=== PATIENT | female | born 2000 | race Caucasian/White ===

== ENCOUNTER → 2018-05-01 | Outpatient (CLI) | payer BC, OTHER ==
[~2018-05-01] MED LIST: ALBU4 PO; ALBU90OI INH; ALBU90OI61 INH; Cyclobenzaprine5 MG PO; FLUT44OIA INH; Norco 5-325 Ta1 EACH PO; Prednisone20 MG PO
== END | disposition home or self-care (01) ==
LOC: LAB SHORT 17:19 → LAB 17:19
DX: Z34.03 Encounter for supervision of normal first pregnancy, third trimester (principal); Z3A.35 35 weeks gestation of pregnancy
CPT/HCPCS: 87081; 87653

== ENCOUNTER 2020-11-07 09:26 | Observation (INO) | payer BC ==
[~2020-11-07] VITALS: Ht 160 cm; Wt 56.7 kg
[2020-11-07 11:31] LABS: BASOPHILS ABSOLUTE AUTO 0.15 K/mm3 (0.00-0.23); BASOPHILS PERCENT AUTO 1 % (0-2); EOSINOPHILS ABSOLUTE AUTO 5.97 K/mm3 (0.00-0.68); EOSINOPHILS PERCENT AUTO 43 % (0-6); Hematocrit 47.6 % (33.0-51.0); Hemoglobin 16.3 g/dL (11.5-16.0); IMMATURE GRAN ABSOLUTE AUTO 0.05 K/mm3 (0.00-0.10); IMMATURE GRAN PERCENT AUTO 0 % (0-1); LYMPHOCYTES ABSOLUTE AUTO 2.49 K/mm3 (0.84-5.20); LYMPHOCYTES PERCENT AUTO 18 % (21-46); MONOCYTES ABSOLUTE AUTO 0.66 K/mm3 (0.16-1.47); MONOCYTES PERCENT AUTO 5 % (4-13); Mean Corpuscular HGB 31.7 pg (26.0-34.0); Mean Corpuscular HGB Conc 34.2 g/dL (31.5-36.5); Mean Corpuscular Volume 93 fL (80-100); Mean Platelet Volume 9.8 fL (9.1-12.4); NEUTROPHILS ABSOLUTE AUTO 4.74 K/mm3 (1.96-9.15); NEUTROPHILS PERCENT AUTO 34 % (41-73); Platelet Count 228 K/mm3 (150-400); RDW Coefficient Variation 12.4 % (11.7-14.2); RDW Standard Deviation 42.5 fL (35.1-46.3); Red Blood Cell Count 5.14 M/mm3 (3.80-5.20); White Blood Cell Count 14.06 K/mm3 (4.00-11.30)
[2020-11-07 11:51] LABS: Alanine Aminotransfer (ALT/SGP 21 U/L (12-78); Albumin, Blood 3.7 g/dL (3.4-5.0); Albumin/Globulin Ratio 1.1 (0.8-1.8); Alk Phos 96 U/L (50-136); Anion Gap 9 mmol/L (6-16); Aspartate Aminotrans (AST/SGOT 17 U/L (12-37); Blood Urea Nitrogen 11 mg/dL (8-24); Bun/Creatinine Ratio 17.1 (12.0-20.0); CO2, Blood 20 mmol/L (21-32); Calcium, Blood 8.6 mg/dL (8.5-10.1); Chloride, Blood 113 mmol/L (98-108); Creatinine, Blood 0.64 mg/dL (0.40-1.00); Globulin, Blood 3.5 g/dL (2.2-4.0); Glomerular Filtration Rate >60 (60-); Glucose, Blood 77 mg/dL (70-99); Potassium, Blood 3.9 mmol/L (3.5-5.5); Sodium, Blood 142 mmol/L (136-145); Total Protein, Blood 7.2 g/dL (6.4-8.2)
[2020-11-07] MEDS ORDERED: ESCI10 PO (13:14)
[2020-11-07] MEDS ORDERED: MONT10T PO (13:14)
[2020-11-07] MEDS ORDERED: WIXELA 250-501 EAC1 INH (13:15)
[2020-11-07] MEDS ORDERED: FLUT1DIS8 INH (16:20)
[2020-11-07 18:06] LABS: Source, Urine Clean Catch
[2020-11-07 18:09] LABS: Bilirubin, Urine Neg (Neg); Blood, Urine 1+ (Neg); Color, Urine Yellow (P-Yellow); Glucose Qualitative, Urine Neg (Neg); Ketones, Urine Neg (Neg); Leukocyte Esterase, Urine 2+ (Neg); Nitrite, Urine Neg (Neg); Protein, Urine Neg (Neg); Urobilinogen, Urine NORM (Normal)
[2020-11-07 18:17] LABS: Appearance, Urine Hazy (Clear)
[2020-11-07 18:19] LABS: Bacteria Many /hpf; Red Blood Cells, Urine 0-2 /hpf (0-2); Squamous Epithelial Cells Many /hpf (Few)
--- NOTE | 2020-11-07 18:35 | NUR ---
SHIFT SUMMARY/ARRIVED ON MEDICAL FLOOR FOR ADMISSION PT AxOx4. ARRIVED TO MEDICAL FLOOR FROM ER AT APPROX 1612. PT PLEASANT AND COOPERATIVE WITH CARE. INDEPENDENT IN THE ROOM. RT IN ROOM FOR BREATHING TX SHORTLY AFTER ARRIVAL. PT CURRENTLY ON 2L O2 WITH SAT'S AT 95%. PT REPORTS MODERATE R CHEST WALL/RIB PAIN WITH MOVEMENT OR WITH APPLIED PRESSURE. PT REPORTS NO PAIN WHEN SHE IS LYING STILL. PT HAS DIFFICULTY TAKING DEEP BREATHS FOR RESP ASSESS D/T RCW PAIN. PT ACCEPTED HEAT PAD FOR RELIEF. GIVEN FLU SHOT. STEP MOM IN ROOM AND GIVEN UPDATE ON PLAN. PT IS CURRENTLY UNDER OBSERVATION. ADMISSION COMPLETE. PT SHOWS NO SIGNS OF DISTRESS. UA COLLECTED. CURRENTLY RESTING IN ROOM EATING DINNER. VITALS REVIEWED. DENIES ANY NEEDS AT THIS TIME.
--- NOTE | 2020-11-08 04:19 | NUR ---
MEAL GRINDER TENDER SUMMARY PT A&OX4, ABLE TO MAKE NEEDS KNOWN. PLEASANT AND COOPERATIVE TO CARE. PT MEDICATED FOR R RIB AREA PAIN PER EMAR. PT CONT ON O2 2LPM VIA NC. SAT >90%. LSCTA. NO C/O CP, SOB, OR N&V. PT INDEPENDENT IN ROOM. DENIES DYSURIA OR ANY OTHER DISCOMFORT. PT CALM AND RESTED IN BED AT THIS TIME. CALL LIGHT WITHIN REACH.
[2020-11-08 05:19] LABS: Hematocrit 47.1 % (33.0-51.0); Hemoglobin 15.7 g/dL (11.5-16.0); Mean Corpuscular HGB Conc 33.3 g/dL (31.5-36.5); Mean Corpuscular Volume 93 fL (80-100); Mean Platelet Volume 10.1 fL (9.1-12.4); Platelet Count 238 K/mm3 (150-400); RDW Coefficient Variation 12.2 % (11.7-14.2); RDW Standard Deviation 41.9 fL (35.1-46.3); Red Blood Cell Count 5.07 M/mm3 (3.80-5.20); White Blood Cell Count 9.39 K/mm3 (4.00-11.30)
[2020-11-08 05:32] LABS: Anion Gap 9 mmol/L (6-16); Blood Urea Nitrogen 11 mg/dL (8-24); Bun/Creatinine Ratio 19.6 (12.0-20.0); CO2, Blood 20 mmol/L (21-32); Calcium, Blood 9.7 mg/dL (8.5-10.1); Chloride, Blood 110 mmol/L (98-108); Creatinine, Blood 0.56 mg/dL (0.40-1.00); Glomerular Filtration Rate >60 (60-); Glucose, Blood 128 mg/dL (70-99); Potassium, Blood 4.3 mmol/L (3.5-5.5); Sodium, Blood 139 mmol/L (136-145)
--- NOTE | 2020-11-08 16:28 | NUR ---
SHIFT SUMMARY PT AOX4; CALLS APPROPRIATELY. PT INDEPENDENT IN THE ROOM. ON TELE AT NSR. PT BOYFRIEND AT BEDSIDE. PT IS 95-96% ON RA. NO O2 AT THIS TIME, AND DENIES SOB. MEDICATED FOR R RIB PAIN THIS AM, AND COUGH MEDICINE GIVEN THIS AFTERNOON. PT STATED THAT IT HELPED HER FROM COUGHING AND PAIN. HOME O2 EVAL TODAY. BED IS IN THE LOWES POSITION AND CALL LIGHT WITHIN REACH
[2020-11-08] MEDS ORDERED: IBUP400 PO (17:32)
[2020-11-08] MEDS ORDERED: PRED20 PO (17:32)
--- NOTE | 2020-11-08 18:00 | NUR ---
PT DISCHARGED TO HOME, WALKED WITH BOYFRIEND. PT RECEIVED BREATHING TX PRIOR DISCHARGE AND HOME O2 EVAL; WHICH SHE DID NOT REQUIRE O2. IV DC'D. MEDICATIONS WAS FAXED TO PHARMACY. PT EDUCATED ABOUT NEW MEDICATIONS. IV DC'D. PT STATED SHE HAS APPOINTMENT WITH HER PROVIDER ON Nov. DENIES SOB OR PAIN DURING DISCHARGE.
== END 2020-11-08 17:50 | disposition home or self-care (01) ==
LOC: ER 09:26 → ERHOLD 09:27 → MEDS 16:11
PROVIDERS: Nurse Practitioner Acute Care; Physician Assistant; ADMIT Family Medicine
DX: J45.901 Unspecified asthma with (acute) exacerbation (principal); J96.01 Acute respiratory failure with hypoxia; M94.0 Chondrocostal junction syndrome [Tietze]; R65.11 Systemic inflammatory response syndrome (SIRS) of non-infectious origin with acute organ dysfunction; Z79.51 Long term (current) use of inhaled steroids; Z91.09 Other allergy status, other than to drugs and biological substances; Z23 Encounter for immunization
CPT/HCPCS: 36415; 71045; 80048; 80053; 81001; 85025; 85027; 87086; 94640; 94760; 94761; 96374; 96375; 96376; 99285-25; A9270; G0008; G0378; J1885; J2920; J2930; J7120; J7512; Q2038

== ENCOUNTER → 2023-05-29 | Outpatient (CLI) | payer BC ==
[~2023-05-29] MED LIST changes: +ESCI10 PO; +FLUT1DIS8 INH; +IBUP400 PO; +MONT10T PO; +PRED20 PO; +WIXELA 250-501 EAC1 INH
== END | disposition home or self-care (01) ==
LOC: LAB SHORT 08:16 → LAB 08:16
DX: N39.0 Urinary tract infection, site not specified (principal)
CPT/HCPCS: 87086

== ENCOUNTER → 2023-06-02 | Outpatient (CLI) | payer BC ==
[~2023-06-02] MED LIST changes: -ALBU90OI61 INH; +AMOCLA875 PO; +AZIT250 PO; +CRYSELLE-28 TA1 EACH PO; +FLUT1DIS5 INH; +SERT25 PO
[2023-06-02 08:36] LABS: BASOPHILS PERCENT AUTO 1 % (0-2); EOSINOPHILS ABSOLUTE AUTO 0.12 K/mm3 (0.00-0.68); EOSINOPHILS PERCENT AUTO 1 % (0-6); Hematocrit 39.9 % (33.0-51.0); Hemoglobin 13.8 g/dL (11.5-16.0); IMMATURE GRAN ABSOLUTE AUTO 0.13 K/mm3 (0.00-0.10); IMMATURE GRAN PERCENT AUTO 1 % (0-1); LYMPHOCYTES ABSOLUTE AUTO 1.87 K/mm3 (0.84-5.20); LYMPHOCYTES PERCENT AUTO 9 % (21-46); MONOCYTES ABSOLUTE AUTO 1.44 K/mm3 (0.16-1.47); MONOCYTES PERCENT AUTO 7 % (4-13); Mean Corpuscular HGB Conc 34.6 g/dL (31.5-36.5); Mean Corpuscular Volume 87 fL (80-100); NEUTROPHILS ABSOLUTE AUTO 17.59 K/mm3 (1.96-9.15); NEUTROPHILS PERCENT AUTO 83 % (41-73); Platelet Count 458 K/mm3 (150-400); RDW Coefficient Variation 11.9 % (11.7-14.2); RDW Standard Deviation 37.9 fL (35.1-46.3); White Blood Cell Count 21.25 K/mm3 (4.00-11.30)
[2023-06-02 09:34] LABS: Albumin, Blood 3.7 g/dL (3.4-5.0); Albumin/Globulin Ratio 0.8 (0.8-1.8); Bilirubin, Total 0.7 mg/dL (0.1-1.0); Bun/Creatinine Ratio 5.7 (12.0-20.0); Calcium, Blood 9.7 mg/dL (8.5-10.1); Creatinine, Blood 0.88 mg/dL (0.40-1.00); Globulin, Blood 4.9 g/dL (2.2-4.0); Potassium, Blood 3.5 mmol/L (3.5-5.5); Total Protein, Blood 8.6 g/dL (6.4-8.2)
== END | disposition home or self-care (01) ==
LOC: LAB SHORT 08:31 → LAB 08:31
PROVIDERS: Physician Assistant
DX: J18.1 Lobar pneumonia, unspecified organism (principal)
CPT/HCPCS: 80053; 85025

== ENCOUNTER 2023-06-05 11:47 | Inpatient (IN) | payer BC ==
[~2023-06-05] VITALS: Ht 162.6 cm; Wt 79.7 kg
[~2023-06-05 11:47] MED LIST changes: -ACET325 PO; -AMOCLA875 PO; -AZIT250 PO; -CRYSELLE-28 TA1 EACH PO; -FLUT1DIS5 INH; -LACT PO; -SERT25 PO
[2023-06-05] MEDS ORDERED: SERT25 PO (14:51)
[2023-06-05] MEDS ORDERED: WIXELA 250-501 EAC1 INH (14:51)
[2023-06-05] MEDS ORDERED: CRYSELLE-28 TA1 EACH PO (14:51)
[2023-06-05] MEDS ORDERED: AZIT250 PO (14:56)
[2023-06-05] MEDS ORDERED: AMOCLA875 PO (14:57)
[2023-06-05 15:34] VITALS: BP 97/65
[2023-06-05] MEDS ORDERED: FLUT1DIS5 INH (15:39)
[2023-06-05 17:01] VITALS: BP 106/77
--- NOTE | 2023-06-05 17:38 | NUR ---
PATIENT CALLED THE RN TO THE ROOM AT 1700 TO ALERT STAFF TO HER SWOLLEN RIGHT EYE, SWOLLEN UPPER LIP AND REDNESS ACROSS HER FACE AND NECK. PATIENT C/O ITCHING ALSO. THE VANCOMYCIN INFUSION WAS COMPLETED AT THAT TIME. VITALS STABLE. NO C/O TROUBLE BREATHING, O2 SAT WAS 100% ON RA. ECG TECHNICIAN, LAINE NOTIFIED AND ALSO ASSESSED THE PATIENT. DR. JORDAN NOTIFIED AND ORDERS GIVEN. THE PATIENT'S IV IS PAINFUL FROM THE VANCOMYCIN. LOOKING FOR A NEW IV NOW SO WE CAN ADMINISTER THE MEDICATIONS ORDERED BY DR. JORDAN.
[2023-06-05 18:39] VITALS: BP 98/65
--- NOTE | 2023-06-05 18:49 | NUR ---
PATIENT IS ALERT AND ORIENTED AND COOPERATIVE WITH CARE. FOLLOWING THE ADMINISTRATION OF MEDS FOR HER ALLERGIC REACTION TO VANCO, THE PATIENT C/O NAUSEA. MEDICATED WITH ZOSYN PER EMAR. PATIENT'S MOM AND BOYFRIEND ARE AT THE BEDSIDE AT THIS TIME. PATIENT STATES SHE IS TIRED AND THE ZOSYN HAS HELPED A LITTLE. VSS. WILL CONTINUE TO MONITOR
[2023-06-05 19:41] VITALS: BP 98/61
[2023-06-06 04:28] VITALS: BP 96/60
--- NOTE | 2023-06-06 04:49 | NUR ---
SHIFT SUMMARY 23 YR F ADMITTED FOR NECROTIZING PNA. FULL CODE. ASSUMED CARE OF PT AT APPROX 0330. NO ACUTE CHANGES. PT STATED SHE FELT WARM AND CLAMMY BUT TEMP WAS 97.3. PT WAS GIVEN A FAN AND STATED THAT IT HELPED ALOT. SHE HAS NO C/O PAIN OR DISCOMFORT AT THIS TIME. SHE IS PLEASANT AND COOPERATIVE WITH CARE AND IS INDEPENDANT IN THE ROOM.
[2023-06-06 05:12] LABS: BASOPHILS ABSOLUTE AUTO 0.03 K/mm3 (0.00-0.23); BASOPHILS PERCENT AUTO 0 % (0-2); EOSINOPHILS ABSOLUTE AUTO 0.01 K/mm3 (0.00-0.68); EOSINOPHILS PERCENT AUTO 0 % (0-6); Hematocrit 35.1 % (33.0-51.0); Hemoglobin 11.8 g/dL (11.5-16.0); IMMATURE GRAN ABSOLUTE AUTO 0.09 K/mm3 (0.00-0.10); IMMATURE GRAN PERCENT AUTO 1 % (0-1); LYMPHOCYTES ABSOLUTE AUTO 0.99 K/mm3 (0.84-5.20); LYMPHOCYTES PERCENT AUTO 7 % (21-46); MONOCYTES ABSOLUTE AUTO 0.16 K/mm3 (0.16-1.47); MONOCYTES PERCENT AUTO 1 % (4-13); Mean Corpuscular HGB 29.6 pg (26.0-34.0); Mean Corpuscular HGB Conc 33.6 g/dL (31.5-36.5); Mean Corpuscular Volume 88 fL (80-100); Mean Platelet Volume 9.1 fL (9.1-12.4); NEUTROPHILS ABSOLUTE AUTO 13.33 K/mm3 (1.96-9.15); NEUTROPHILS PERCENT AUTO 91 % (41-73); Platelet Count 501 K/mm3 (150-400); RDW Coefficient Variation 11.6 % (11.7-14.2); RDW Standard Deviation 37.2 fL (35.1-46.3); Red Blood Cell Count 3.98 M/mm3 (3.80-5.20); White Blood Cell Count 14.61 K/mm3 (4.00-11.30)
[2023-06-06 05:51] LABS: Albumin, Blood 2.4 g/dL (3.4-5.0); Albumin/Globulin Ratio 0.6 (0.8-1.8); Bilirubin, Total 0.5 mg/dL (0.1-1.0); Calcium, Blood 8.3 mg/dL (8.5-10.1); Creatinine, Blood 0.67 mg/dL (0.40-1.00); Globulin, Blood 4.2 g/dL (2.2-4.0); Potassium, Blood 4.3 mmol/L (3.5-5.5); Total Protein, Blood 6.6 g/dL (6.4-8.2)
[2023-06-06 07:41] VITALS: BP 104/67
--- NOTE | 2023-06-06 11:09 | NUR ---
PT REFUSED STOOL SOFT. STATES NEARLY DIARRHEA. WILL SPEAK TO
[2023-06-06 15:32] VITALS: BP 105/66
--- NOTE | 2023-06-06 19:28 | NUR ---
ptpleasant today. noc/o pian until end of shift , tylenol admn. family in to see today. continue abx. did have slight redness in cheeks today. gave ice pack for comfort. cough is now dry/nonproductive. no other concerns noted. independant in room. bed in low position, call lite in reach,calls approp
[2023-06-06 20:33] VITALS: BP 108/70
[2023-06-07 02:40] VITALS: BP 114/72
[2023-06-07 05:01] LABS: BASOPHILS ABSOLUTE AUTO 0.05 K/mm3 (0.00-0.23); BASOPHILS PERCENT AUTO 0 % (0-2); EOSINOPHILS ABSOLUTE AUTO 0.01 K/mm3 (0.00-0.68); EOSINOPHILS PERCENT AUTO 0 % (0-6); Hematocrit 31.3 % (33.0-51.0); Hemoglobin 10.7 g/dL (11.5-16.0); IMMATURE GRAN ABSOLUTE AUTO 0.11 K/mm3 (0.00-0.10); IMMATURE GRAN PERCENT AUTO 1 % (0-1); LYMPHOCYTES PERCENT AUTO 14 % (21-46); MONOCYTES ABSOLUTE AUTO 1.05 K/mm3 (0.16-1.47); MONOCYTES PERCENT AUTO 6 % (4-13); Mean Corpuscular HGB 29.8 pg (26.0-34.0); Mean Corpuscular HGB Conc 34.2 g/dL (31.5-36.5); Mean Corpuscular Volume 87 fL (80-100); NEUTROPHILS ABSOLUTE AUTO 14.68 K/mm3 (1.96-9.15); NEUTROPHILS PERCENT AUTO 79 % (41-73); Platelet Count 503 K/mm3 (150-400); RDW Coefficient Variation 11.8 % (11.7-14.2); RDW Standard Deviation 37.8 fL (35.1-46.3); Red Blood Cell Count 3.59 M/mm3 (3.80-5.20)
[2023-06-07 05:17] LABS: Bun/Creatinine Ratio 10.8 (12.0-20.0); Calcium, Blood 8.3 mg/dL (8.5-10.1); Creatinine, Blood 0.74 mg/dL (0.40-1.00); Potassium, Blood 3.6 mmol/L (3.5-5.5)
--- NOTE | 2023-06-07 05:25 | NUR ---
SHIFT SUMMARY PATIENT ALERT, BRIGHT AFFECT. APPEARES ANXIOUS AT TIMES. FAMILY AND BOYFRIEND AT BEDSIDE AT BEGINING OF SHIFT. DENIES PAOIN NOR DISCOMFORT, OCCATIONAL DRY COUGH. LUNGS CTA, NO AUDIBLE CRACKLES/RALES. INDEPENDANT IN ROOM. TOOK SHOWER AT HS, TOLERATED WELL. CONTINUES ON IV ABX THERAPY WITHOUT ANY APPARENT ASE NOTED NOR REPORTED. NO ACUTE CHANGES NOTED OVERNIGHT. BED IN LOW POSITION, CALL LIGHT WITHIN REACH.
[2023-06-07 07:45] VITALS: BP 114/75
[2023-06-07 15:12] VITALS: BP 91/65
--- NOTE | 2023-06-07 15:59 | NUR ---
SHIFT SUMMARY PT AWAKE DURING SHIFT REPORT, IV ABX INFUSING. PT SL AND TAKEN DOWN FOR CXR VIA W/C. PT UP INDEPENDENTLY IN AND TO BTH[facility]. PT'S MOM IN TO VISIT EARLY TODAY. PT LATER C/O PAIN/TENDERNESS TO LFA IV SITE AND REQUESTING IV ABX RUN AT SLOWER RATE. NEW IV PLACED; IV ABX COMPLETED. PT LATER C/O PAIN TO R SIDE D/T COUGHING. PT MEDICATED PER EMAR AND REPORTED IT EFFECTIVE. RESTING QUIETLY WATCHING TV. DENIES FURTHER NEEDS AT THIS TIME. CALL LT IN REACH.
[2023-06-07 19:34] VITALS: BP 92/67
[2023-06-08 03:50] VITALS: BP 93/64
[2023-06-08 05:08] LABS: BASOPHILS ABSOLUTE AUTO 0.06 K/mm3 (0.00-0.23); BASOPHILS PERCENT AUTO 1 % (0-2); EOSINOPHILS ABSOLUTE AUTO 0.17 K/mm3 (0.00-0.68); EOSINOPHILS PERCENT AUTO 1 % (0-6); Hematocrit 31.1 % (33.0-51.0); Hemoglobin 10.5 g/dL (11.5-16.0); IMMATURE GRAN ABSOLUTE AUTO 0.06 K/mm3 (0.00-0.10); IMMATURE GRAN PERCENT AUTO 1 % (0-1); LYMPHOCYTES ABSOLUTE AUTO 2.87 K/mm3 (0.84-5.20); LYMPHOCYTES PERCENT AUTO 23 % (21-46); MONOCYTES ABSOLUTE AUTO 0.88 K/mm3 (0.16-1.47); MONOCYTES PERCENT AUTO 7 % (4-13); Mean Corpuscular HGB 29.3 pg (26.0-34.0); Mean Corpuscular HGB Conc 33.8 g/dL (31.5-36.5); Mean Corpuscular Volume 87 fL (80-100); Mean Platelet Volume 8.8 fL (9.1-12.4); NEUTROPHILS ABSOLUTE AUTO 8.24 K/mm3 (1.96-9.15); NEUTROPHILS PERCENT AUTO 67 % (41-73); Platelet Count 438 K/mm3 (150-400); RDW Coefficient Variation 11.9 % (11.7-14.2); RDW Standard Deviation 38.3 fL (35.1-46.3); Red Blood Cell Count 3.58 M/mm3 (3.80-5.20); White Blood Cell Count 12.28 K/mm3 (4.00-11.30)
[2023-06-08 05:36] LABS: Bun/Creatinine Ratio 8.9 (12.0-20.0); Calcium, Blood 8.1 mg/dL (8.5-10.1); Creatinine, Blood 0.78 mg/dL (0.40-1.00); Potassium, Blood 3.8 mmol/L (3.5-5.5)
--- NOTE | 2023-06-08 06:08 | NUR ---
PATIENT A/O X4, UP INDEPENDENTLY IN ROOM. VSS, SBP IN THE LOW 90'S, PATIENT NOT DIZZY OR SYMPTOMATIC WITH THIS. LUNGS CLEAR, ON RA. OCCASIONAL DRY COUGH THAT CAUSES R RIB DISCOMFORT, PATIENT DENIES NEED FOR INTERVENTION FOR THIS. SKIN INTACT. 22G TO R FA WNL. RECEIVING ANTIBIOTICS. ZOFRAN GIVEN X1 THIS SHIFT FOR NAUSEA WITH STATED RELIEF. NO NEW CONCERNS THIS SHIFT.
[2023-06-08 08:00] VITALS: BP 90/57
[2023-06-08] MEDS ORDERED: ACET325 PO (11:56)
[2023-06-08] MEDS ORDERED: LACT PO (11:56)
[2023-06-08] MEDS ORDERED: Norco 5-325 Ta1 EACH PO (11:56)
--- NOTE | 2023-06-08 14:28 | NUR ---
PT AWAKE AT START OF SHIFT. PLEASANT AND CO-OP WITH CARE. UP INDEPENDENTLY IN AND TO [facility]. PT'S MOM AND SON TO TO VISIT EARLY THIS AM. DR JORDAN LATER IN TO SEE PT AND DISCUSS PLAN OF CARE. PT TO D/C TO HOME. MEDS FAXED TO PHARMACY, PER PT REQUEST. HARD SCRIPT WRITTEN FOR PAIN/COUGH MEDICATION; COPY PLACED ON CHART. 1200 DOSE OF IV ZOSYN GIVEN EARLY PER DR JORDAN, PRIOR TO PT D/C. D/C INSTRUCTIONS REVIEWED WITH PT; VERBALIZED UNDERSTANDING. FAMILY ASSISTED PT WITH BELONGINGS. PT REQUESTED TO WALK OUT WITH FAMILY AT D/C. DENIED FURTHER NEEDS.
== END 2023-06-08 12:38 | disposition home or self-care (01) | DRG 871 ==
LOC: ER 11:47 → MEDS 13:29
PROVIDERS: ADMIT Internal Medicine
DX: A41.9 Sepsis, unspecified organism (principal); J85.1 Abscess of lung with pneumonia; F12.90 Cannabis use, unspecified, uncomplicated; J45.909 Unspecified asthma, uncomplicated; R65.20 Severe sepsis without septic shock; T38.0X5A Adverse effect of glucocorticoids and synthetic analogues, initial encounter; F41.9 Anxiety disorder, unspecified; Z79.52 Long term (current) use of systemic steroids; Z79.899 Other long term (current) drug therapy; Z91.048 Other nonmedicinal substance allergy status; Z88.1 Allergy status to other antibiotic agents
CPT/HCPCS: 36415; 71046; 80048; 80053; 83605; 85025; 87040; 87070; 87205; 94640; 94664; 94760; 96361; 96365; 96367; 99285-25; A9270; J0736; J1200; J2020; J2405; J2543; J2930; J3370; J7030; J7050

== ENCOUNTER → 2023-06-05 | Outpatient (CLI) | payer BC ==
[~2023-06-05] MED LIST changes: +ACET325 PO; +LACT PO
[2023-06-05 08:38] LABS: BASOPHILS PERCENT AUTO 1 % (0-2); EOSINOPHILS ABSOLUTE AUTO 0.07 K/mm3 (0.00-0.68); EOSINOPHILS PERCENT AUTO 0 % (0-6); Hematocrit 39.6 % (33.0-51.0); Hemoglobin 13.8 g/dL (11.5-16.0); IMMATURE GRAN ABSOLUTE AUTO 0.12 K/mm3 (0.00-0.10); IMMATURE GRAN PERCENT AUTO 1 % (0-1); LYMPHOCYTES ABSOLUTE AUTO 1.94 K/mm3 (0.84-5.20); LYMPHOCYTES PERCENT AUTO 10 % (21-46); MONOCYTES ABSOLUTE AUTO 1.07 K/mm3 (0.16-1.47); MONOCYTES PERCENT AUTO 5 % (4-13); Mean Corpuscular HGB 30.1 pg (26.0-34.0); Mean Corpuscular HGB Conc 34.8 g/dL (31.5-36.5); Mean Corpuscular Volume 86 fL (80-100); Mean Platelet Volume 8.7 fL (9.1-12.4); NEUTROPHILS ABSOLUTE AUTO 17.04 K/mm3 (1.96-9.15); NEUTROPHILS PERCENT AUTO 84 % (41-73); Platelet Count 596 K/mm3 (150-400); RDW Coefficient Variation 11.9 % (11.7-14.2); RDW Standard Deviation 37.4 fL (35.1-46.3); Red Blood Cell Count 4.59 M/mm3 (3.80-5.20); White Blood Cell Count 20.34 K/mm3 (4.00-11.30)
== END | disposition home or self-care (01) ==
LOC: LAB 08:35 → LAB SHORT 08:35
PROVIDERS: Physician Assistant
DX: R06.00 Dyspnea, unspecified (principal)
CPT/HCPCS: 85025

== ENCOUNTER → 2023-11-22 | Outpatient (CLI) | payer BC, OTHER ==
[~2023-11-22] MED LIST changes: +ACET325 PO; +AMOCLA875 PO; +AZIT250 PO; +CRYSELLE-28 TA1 EACH PO; +FLUT1DIS5 INH; +LACT PO; +SERT25 PO
[2023-11-22 14:43] LABS: BASOPHILS ABSOLUTE AUTO 0.07 K/mm3 (0.00-0.23); BASOPHILS PERCENT AUTO 1 % (0-2); EOSINOPHILS ABSOLUTE AUTO 0.58 K/mm3 (0.00-0.68); EOSINOPHILS PERCENT AUTO 5 % (0-6); Hematocrit 41.2 % (33.0-51.0); Hemoglobin 14.3 g/dL (11.5-16.0); IMMATURE GRAN ABSOLUTE AUTO 0.03 K/mm3 (0.00-0.10); IMMATURE GRAN PERCENT AUTO 0 % (0-1); LYMPHOCYTES ABSOLUTE AUTO 2.95 K/mm3 (0.84-5.20); LYMPHOCYTES PERCENT AUTO 25 % (21-46); MONOCYTES ABSOLUTE AUTO 0.64 K/mm3 (0.16-1.47); MONOCYTES PERCENT AUTO 5 % (4-13); Mean Corpuscular HGB 30.2 pg (26.0-34.0); Mean Corpuscular HGB Conc 34.7 g/dL (31.5-36.5); Mean Corpuscular Volume 87 fL (80-100); Mean Platelet Volume 9.9 fL (9.1-12.4); NEUTROPHILS ABSOLUTE AUTO 7.71 K/mm3 (1.96-9.15); NEUTROPHILS PERCENT AUTO 64 % (41-73); Platelet Count 222 K/mm3 (150-400); RDW Coefficient Variation 12.3 % (11.7-14.2); RDW Standard Deviation 39.4 fL (35.1-46.3); Red Blood Cell Count 4.73 M/mm3 (3.80-5.20); White Blood Cell Count 11.98 K/mm3 (4.00-11.30)
[2023-11-22 15:25] LABS: Albumin, Blood 3.9 g/dL (3.4-5.0); Albumin/Globulin Ratio 1.1 (0.8-1.8); Bilirubin, Total 0.4 mg/dL (0.1-1.0); Calcium, Blood 9.3 mg/dL (8.5-10.1); Creatinine, Blood 0.73 mg/dL (0.40-1.00); Globulin, Blood 3.6 g/dL (2.2-4.0); Potassium, Blood 3.3 mmol/L (3.5-5.5); Thyroid Stimulating Hormone 1.33 uIU/mL (0.360-4.800); Total Protein, Blood 7.5 g/dL (6.4-8.2)
== END | disposition home or self-care (01) ==
LOC: LAB SHORT 13:45 → LAB 13:45
PROVIDERS: Physician Assistant
DX: K29.70 Gastritis, unspecified, without bleeding (principal); R53.83 Other fatigue
CPT/HCPCS: 80053; 84443; 85025